=== PATIENT | female | born 1985 | race Two or more races ===

== ENCOUNTER 2017-11-08 14:24 | Emergency (ER) | payer OTHER ==
[2017-11-08 15:13] VITALS: BP 128/84
[2017-11-08] MEDS ORDERED: Acetaminophen TAB* 325 MG PO ONE (16:03)
--- NOTE | 2017-11-08 16:37 | RAD ---
INDICATION: Head injury. COMPARISON: There are no prior studies available for comparison. TECHNIQUE: Contiguous axial sections of the brain were obtained from the skull base to the vertex without contrast. FINDINGS: The ventricles, cisterns and sulci are within normal limits. No significant focal abnormality or mass effect is seen. There is no evidence for hemorrhage. No fracture is seen. There is mucosal thickening within the visualized portion of the ethmoid and maxillary sinuses and an air-fluid level within the right maxillary sinus most consistent with sinusitis. IMPRESSION: 1. NO EVIDENCE FOR ACUTE INTRACRANIAL ABNORMALITY. 2. FINDINGS MOST CONSISTENT WITH MAXILLARY AND ETHMOID SINUSITIS.
--- NOTE | 2017-11-08 16:41 | RAD ---
INDICATION: Trauma. COMPARISON: There are no prior studies available for comparison. TECHNIQUE: Contiguous axial sections were obtained from the skull base through the T3 vertebra. Images were reconstructed in the sagittal and coronal planes. FINDINGS: There is straightening of the cervical spine with loss of the normal cervical lordosis. No prevertebral soft tissue swelling or fracture is seen. Disc spaces appear maintained. There is no evidence for significant spinal canal or neural foraminal narrowing. There are air-fluid levels within both maxillary sinuses and mucosal thickening within the ethmoid and maxillary sinuses consistent with sinusitis. IMPRESSION: 1. STRAIGHTENING OF THE CERVICAL SPINE, NO EVIDENCE FOR FRACTURE OR SUBLUXATION. 2. FINDINGS CONSISTENT WITH MAXILLARY AND ETHMOID SINUSITIS IS NOTED.
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
== END 2017-11-08 17:03 | disposition home or self-care (01) ==
LOC: UCEAST 14:24
DX: S00.03XA Contusion of scalp, initial encounter (principal); S09.90XA Unspecified injury of head, initial encounter; V86.99XA Unspecified occupant of other special all-terrain or other off-road motor vehicle injured in nontraffic accident, initial encounter; Y93.89 Activity, other specified; Y92.9 Unspecified place or not applicable; J32.0 Chronic maxillary sinusitis; J32.2 Chronic ethmoidal sinusitis; Z88.0 Allergy status to penicillin
CPT/HCPCS: 70450; 72125; 99213; A9270-GY; G0463

== ENCOUNTER 2019-07-06 11:11 | Emergency (ER) | payer OTHER ==
[2019-07-06 12:51] VITALS: BP 126/82
--- NOTE | 2019-07-06 12:58 | UC ---
FLU HPI - HPI Summary HPI Summary: Healthy 34-year-old female with fatigue, myalgias and significant sinus congestion and discharge. Patient has not received a flu shot this year. Patient has been exposed to child with the flu. She has been afebrile. For the last 7 days she has had significant sinus discomfort. She has a long- standing history of sinus problems including a previous procedure. She is allergic to penicillin. Nurse's note: pt with exposure to the flu, starting last night, she started getting fatigue, body aches, nasal congestion and drainage, cough. afebrile. - History of Current Complaint Chief Complaint: UCGeneralIllness Stated Complaint: SINUS ISSUE Time Seen by Provider: 07/06/19 12:55 Hx Last Menstrual Period: two weeks ago Pain Intensity: 5 - Allergy/Home Medications Allergies/Adverse Reactions: Allergies Allergy/AdvReac Type Severity Reaction Status Date / Time Penicillins Allergy Intermediate Rash Verified 07/06/19 12:51 seasonal Allergy See Comment Uncoded 07/06/19 12:51 Home Medications: Home Medications Oxymetazoline 0.05% NASAL SPR* [Afrin 0.05% NASAL SPRAY*] 2 inh INH DAILY PRN [History Confirmed 07/06/19] Pseudoephedrine HCl [Sudafed 12 Hour] 1 dose PO ONCE PRN 07/06/19 [History Confirmed 07/06/19] PMH/Surg Hx/FS Hx/Imm Hx - Additional Past Medical History Additional PMH: Chronic intermittent sinusitis, treated with antibiotics and steroids. Previously Healthy: Yes Neurological History: Other - Headaches and dizziness - Surgical History Surgical History: Yes Surgery Procedure, Year, and Place: oral surgery - Family History Known Family History: Positive: Other - PT DENIES ANY RELEVANT FAMILY HISTORY. - Social History Alcohol Use: Weekly Substance Use Type: None Smoking Status (MU): Never Smoked Tobacco - Immunization History Most Recent Influenza Vaccination: [id number] Season Review of Systems All Other Systems Reviewed And Are Negative: Yes Constitutional: Positive: Fatigue. Negative: Fever Skin: Positive: Negative Eyes: Positive: Negative ENT: Positive: Dental Pain, Sinus Congestion, Sinus Pain/Tenderness Respiratory: Positive: Cough. Negative: Shortness Of Breath Cardiovascular: Positive: Negative Gastrointestinal: Positive: Negative Is Patient Immunocompromised?: No Physical Exam - Summary Physical Exam Summary: Appearance: The patient is well-appearing, is in no pain or distress, and is well-nourished. Eyes: Conjunctiva are clear. Pupils are equal and reactive to light and accommodation. Extra ocular muscle movement is intact. ENT: The hearing is grossly normal, the pharynx is normal, and the TMs are normal. There is no muffled or hoarse voice. No stridor.Nares are clear. Maxillary sinuses are tender to percussion. Neck: The neck is supple and there is no lymphadenopathy. Respiratory: The chest is non-tender to palpation and without crepitus. The lungs are clear, there are normal breath sounds, and there is no respiratory distress. No wheezes, rales or rhonchi. Cardiovascular: Heart sounds reveal a regular rate and rhythm. There are no clicks, rubs or murmurs. There are no carotid bruits or thrills. Circulation is grossly intact. Abdomen: The abdomen is soft and nontender. There is no organomegaly. Bowel sounds are present and within normal limits. No point tenderness at McBurneys point. No CVA tenderness. Musculoskeletal: Strength is intact. The patient moves all extremities. Neurological: The patient is alert. Motor and sensory are examination grossly intact. Speech is normal. Psychological: The patient displays age appropriate behavior, and is conversant. GCS=15. Skin: Negative for rashes. Triage Information Reviewed: Yes Vital Signs: Initial Vital Signs Temp 98.4 F 07/06/19 12:48 Pulse 73 07/06/19 12:48 Resp 18 07/06/19 12:48 BP 126/82 07/06/19 12:48 Pulse Ox 99 07/06/19 12:48 Vital Signs Reviewed: Yes Flu Course/Dx - Course Course Of Treatment: Healthy 34-year-old female with fatigue, myalgias and significant sinus congestion and discharge. Patient has not received a flu shot this year. Patient has been exposed to child with the flu. She has been afebrile. For the last 7 days she has had significant sinus discomfort. She has a long- standing history of sinus problems including a previous procedure. She is allergic to penicillin. Influenza test is negative. My diagnosis is sinus congestion and inflammation. Based on her past medical history and in discussion with the patient, I will start her on 3 days of prednisone. She will follow up for any worsening sinus discomfort or fever. - Differential Dx/Diagnosis Differential Diagnosis/HQI/PQRI: Upper Respiratory Infection, Other - sinusitis Provider Diagnosis: Sinusitis Discharge ED - Sign-Out/Discharge Documenting (check all that apply): Patient Departure All imaging exams completed and their final reports reviewed: No Studies - Discharge Plan Condition: Stable Disposition: HOME Referrals: Arash Fitch SHADE CLASSIFIER [Primary Care Provider] - Additional Instructions: WE DISCUSSED: PLEASE SEEK CARE AT THE EMERGENCY DEPARTMENT IF SYMPTOMS WORSEN OR IF NEW SYMPTOMS DEVELOP. FOLLOW UP WITH YOUR PRIMARY CARE PHYSICIAN IF CONDITION CONTINUES BEYOND 3 DAYS WITHOUT IMPROVEMENT. YOUR DIAGNOSIS IS: Sinus congestion and inflammation YOUR PRESCRIPTION RECOMMENDATION IS: Prednisone, 3 pills a day for 3 days. OTHER INSTRUCTIONS: sand mixer machine the shower, lots of tea and honey; you want to heat up all the mucus that's in and around the sinuses so it can drain. I've given you some prednisone for 3 days. Hopefully that will decrease the inflammation and your sinuses. This is probably a virus, but if you do develop fever and increased pain, he will need to be reevaluated. FOR PAIN AND/OR SLEEP: For pain: Ibuprofen (Motrin and other brand names) 400-600mg PLUS acetaminophen (Tylenol and other brand names) 500mg - 1000mg every 8 hours. - Billing Disposition and Condition Condition: STABLE Disposition: Home
[2019-07-06 13:21] LABS: Influenza A Molecular Negative (Negative); Influenza B Molecular Negative (Negative)
== END 2019-07-06 13:38 | disposition home or self-care (01) ==
LOC: UCEAST 11:11
DX: J32.9 Chronic sinusitis, unspecified (principal); R53.83 Other fatigue; R05 Cough; Z88.0 Allergy status to penicillin
CPT/HCPCS: 99212; G0463